=== PATIENT | female | born 1980 | race Caucasian/White ===

== ENCOUNTER 2018-02-15 14:01 | Outpatient (CLI) | END 2018-02-15 14:02 | disposition home or self-care (01) | LOC: FCC-LAB 14:01 | PROVIDERS: ATTEND General Practice | DX: E78.5 Hyperlipidemia, unspecified (principal) | CPT/HCPCS: 36415; 80053; 81001; 85025 ==

== ENCOUNTER 2018-02-23 16:04 | Outpatient (CLI) | END 2018-02-23 16:05 | disposition home or self-care (01) | LOC: FCC-LAB 16:04 | PROVIDERS: ATTEND General Practice | DX: Z00.00 Encounter for general adult medical examination without abnormal findings (principal); E03.9 Hypothyroidism, unspecified; R63.8 Other symptoms and signs concerning food and fluid intake; Z79.899 Other long term (current) drug therapy | CPT/HCPCS: 36415; 80061; 81001; 84443; 85025 ==